=== PATIENT | male | born 1985 | race Caucasian/White ===

== ENCOUNTER 2020-10-15 14:31 | Emergency (ER) | payer BC, SELFPAY ==
[2020-10-15 14:40] VITALS: BP 143/91; PULSE 95; RESP 16; TEMP 36.5; O2SAT 99; BMI 26.6
[2020-10-15 15:07] LABS: COVID-19 Test Positive (Negative)
--- NOTE | 2020-10-15 16:07 | ED.GENADULT ---
HPI - General Adult General Chief complaint: General Medical Stated complaint: COLD Time Seen by Provider: 10/15/20 16:00 Source: patient Mode of arrival: ambulatory Limitations: no limitations History of Present Illness HPI narrative: 35-year-old male who presents emergency department for evaluation of cold-like symptoms. Patient states he has not been feeling well for about 2 days. He states that he has nasal congestion with pressure and his face and fatigue. He denied fever, chills, cough, chest pain, shortness of breath, dyspnea on exertion, diarrhea, myalgias, arthralgias, loss of sense of taste or smell. The patient states that he is in the [employer] and is scheduled to go on maneuvers this weekend. He contacted his commander who advised him to get a COVID-19 test prior to reporting to duty therefore he came to the emergency department for evaluation. He has not had COVID-19 and he has not been vaccinated. Related Data Allergies Allergy/AdvReac Type Severity Reaction Status Date / Time No Known Allergies Allergy Unverified 04/23/20 18:23 [No Known Allergies*] [facility] Past Medical History Medical History (Updated 10/15/20 @ 16:06 by Naif Leon MD) Seasonal allergies Social History Social History Advance Directives: No Advance Directives Information Provided: Yes Physical Exam Vital Signs: Vital Signs: Last Vital Signs Temp 97.7 F 10/15/20 14:40 Pulse 95 10/15/20 14:40 Resp 16 10/15/20 14:40 BP 143/91 H 10/15/20 14:40 Pulse Ox 99 10/15/20 14:40 Body Mass Index 26.6 Const: General: cooperative and healthy appearing Orientation/consciousness: oriented to person and oriented to place Limitations: no limitations HENMT: Head: Yes normal to inspection, Yes normocephalic and Yes atraumatic Ears: external ears normal General nose exam: Normal external nose present Face and sinus: Yes normal facial exam Mouth: Normal oral and palatal mucosa present Throat: Yes posterior oropharynx normal Eyes: Periorbital: periorbital findings normal Eyelids: Yes eyelids normal Conjunctivae: conjunctivae normal Sclerae: sclerae normal Corneas: corneas normal Pupils: Equal, round and reactive pupils present Direct Ophthalmoscopy: normal light reflex Neck: Neck: Yes full ROM, Yes no lymphadenopathy, Yes no meningeal signs, Yes trachea midline and Yes supple Chest: Chest palpation & inspection: normal inspection of the chest and normal palpation of entire chest wall Resp: Effort & Inspection: normal respiratory effort and able to speak in complete sentences Auscultation: clear to auscultation bilaterally Cardio: Rate: regular rate Rhythm: regular rhythm Heart sounds: S1 normal heart sound present, S2 normal heart sound present and no murmurs GI: Inspection: Yes normal to inspection Palpation (GI): Soft to palpation, nontender, no guarding, not rigid and No hepatosplenomegaly present : General: Yes no CVA tenderness Back/Spine/Pelvis: Back: no CVA tenderness Cervical Spine: normal cervical lordosis Thoracic/Lumbar Spine: thoracic and lumbar spine normal to inspection Skin: Lesions: no lesions Rashes: no rashes Wounds: no wounds Neuro: General: oriented to person, oriented to place and no meningeal signs Cranial nerves: Yes CN's II-XII intact bilaterally and Yes Equal, round and reactive pupils present Cognition (Neuro): normal cognition Motor exam (neuro): 5/5 motor strength present throughout Extrem: General: Yes normal to inspection and Yes full ROM Psych: Appearance: well kempt Mental Status: mental status grossly normal Speech and movement: Normal speech and movement present Affect: normal affect Attitude: cooperative Thought process: Normal thought process present Thought content: Normal thought content present Course Course Course Narrative: 35-year-old male who presents emergency department for evaluation of viral illness x2 days. Patient's physical examination was unremarkable including normal vital signs and a normal O2 saturation on room air. The patient's COVID-19 test is positive. I did discuss this result with the patient. The patient will need to quarantine for 14 days. He will not be able to work our participate in exercises and he was given a note stating these limitations. Medical Decision Making Lab Data Labs: Lab Results 10/15/20 Range/Units 14:44 COVID-19 ([facility]) Positive A (Negative) COVID-19 Clin Com See Note Discharge Plan Discharge Clinical Impression: COVID-19 Patient Disposition: Home, Self-Care Instructions: COVID-19 (Coronavirus Disease 2019) (ED) Additional Instructions: Your COVID-19 test today was positive. Based on your evaluation today, it is okay to send you home. Please plan for self quarantine for up to 14 days. Do not expose yourself to others. You may not go to work. Please continue to wear a mask, follow cold instructions and wash your hands frequently. You may take Tylenol 325 mg pills, 2 pills every 4 hours as needed for pain or fever. You may also take ibuprofen(Motrin/Advil) 200 mg pills, 3 pills every 6 hours as needed for pain or fever. CDC Guidelines for home isolation: - Stay away from others - WEAR A MASK if you are sick AND STAY HOME - Cover your mouth and nose with a tissue when you cough or sneeze. Dispose of tissues in a lined trash can and wash your hands immediately with soap and water for at least 20 seconds. If soap and water are not available, clean hands with alcohol-based hand durability engineer that contains at least 60% alcohol. - Clean your hands often with soap and water for at least 20 seconds - Avoid touching your eyes, nose and mouth with unwashed hands - Do not share dishes, drinking glasses, cups, eating utensils, towels, or bedding with other people in your home. After using these items, wash them thoroughly with soap and water or put in the marketing intelligence manager. - Clean high-touch surfaces in your isolation area ( sick room and bathroom) every day; let a caregiver clean and disinfect high-touch surfaces in other areas of the home. Clean the area or item with soap and water or another detergent if it is dirty. Then, use a household disinfectant. - Limit contact with pets and animals: If you must care for a pet, wash your hands before and after interacting with them). Stand Alone Forms: Work/School Release Discharge Date/Time: 10/15/20 16:13
== END 2020-10-15 16:13 | disposition home or self-care (01) ==
PROVIDERS: Emergency Provider Emergency Medicine Emergency Medical Services
DX: U07.1 COVID-19 (principal)
CPT/HCPCS: 36415; 87635; 99283